=== PATIENT | female | born 1980 | race Caucasian/White ===

== ENCOUNTER 2017-06-23 02:48 | Emergency (ER) | payer MEDICAID ==
[~2017-06-23] VITALS: Ht 162.6 cm; Wt 63.0 kg
--- NOTE | 2017-06-23 03:00 | NUR ---
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 FIELD BP 72/27. PT ALSO STATES ABD PAIN SINCE THIS AM +N/V TAKING OTC [place] MEDS. PT AOX3 RR EVEN AND UNLABORED. NO SOB NOTED. NAD NOTED. NO NVD AT THIS TIME. PT GOWNED AND PLACED ON MONITOR WAITING FOR MD CONTRERAS.
--- NOTE | 2017-06-23 03:08 | NUR ---
DR. GAUTAM AT BEDSIDE FOR EVAL.
[2017-06-23] MEDS ORDERED: ONDANSETRON HCL/PF 4 MG/2 ML VIAL IVP ONE (03:30)
[2017-06-23] MEDS ORDERED: IV NS 0.9% 1,000 ML BAG IV ONE (03:30)
[2017-06-23] MEDS ORDERED: DICYCLOMINE HCL 10 MG CAPSULE PO ONE (03:30)
[2017-06-23 03:42] LABS: BASOPHILS # (AUTO) 0.1 /CMM (0.0-0.2); BASOPHILS % (AUTO) 0.9 % (0.0-2.0); EOSINOPHILS # (AUTO) 0.1 /CMM (0.0-0.7); EOSINOPHILS % (AUTO) 0.8 % (0.0-6.0); HEMATOCRIT 40 % (33-45); LYMPHOCYTES # (AUTO) 1.8 /CMM (0.8-4.8); LYMPHOCYTES % (AUTO) 24.9 % (20.0-44.0); MEAN CORPUSCULAR HEMOGLOBIN 32 PG (26.0-33.0); MEAN CORPUSCULAR HGB CONC 35 g/dl (31.0-36.0); MEAN CORPUSCULAR VOLUME 91 fL (82-100); MONOCYTES # (AUTO) 0.9 /CMM (0.1-1.30); MONOCYTES % (AUTO) 11.7 % (2.0-12.0); NEUTROPHILS # (AUTO) 4.5 /CMM (1.8-8.9); NEUTROPHILS % (AUTO) 61.7 % (43.0-81.0); PLATELET COUNT (AUTO) 199 /CMM (150-450); RDW COEFFICIENT OF VARIATION 13.4 (11.5-15.0); RED BLOOD CELL COUNT(AUTO) 4.43 MIL/uL (4.0-5.2); WHITE BLOOD COUNT (AUTO) 7.4 K/uL (4.3-11.0)
--- NOTE | 2017-06-23 03:46 | NUR ---
MICHELLE AT BEDSIDE
[2017-06-23 03:59] LABS: CALCIUM, SERUM 9.1 mg/dL (8.5-10.1); CARBON DIOXIDE 26 mmol/L (21-32); CHLORIDE 101 mmol/L (98-107); CREATININE 0.8 mg/dL (0.6-1.3); GLUCOSE 96 mg/dL (74-106); POTASSIUM 3.5 mmol/L (3.5-5.1); SODIUM SERUM 136 mmol/L (136-145); UREA NITROGEN, BLOOD 9 mg/dL (7-18)
[2017-06-23 04:04] LABS: ALANINE AMINOTRANSFERASE 25 U/L (12-78); ALBUMIN 3.8 g/dL (3.4-5.0); ALKALINE PHOSPHATASE 65 U/L (46-116); ASPARTATE AMINOTRANSFERASE 18 U/L (15-37); BILIRUBIN,DIRECT 0.1 mg/dL (0.0-0.2); BILIRUBIN,TOTAL 0.5 mg/dL (0.2-1.0); LIPASE 94 U/L (73-393); TOTAL PROTEIN, SERUM 7.6 g/dL (6.4-8.2)
[2017-06-23 04:09] LABS: TROPONIN I < 0.017 ng/mL (0.00-0.056)
--- NOTE | 2017-06-23 04:45 | NUR ---
PT AMBULATORY TO RESTROOM WITH STEADY GAIT.
--- NOTE | 2017-06-23 05:09 | NUR ---
DUE TO INCORRECT NAME OF PATIENT, I MANUALLY REGISTERED THE PATIENT INTO THE MACHINE. PREVIOUS NAME WAS BRANDON HIGGINS. AFTER COMPLETING THE EXAM, I COULD NOT SEND THE EXAM TO [facility]. CALLED [facility] @4:55 AND INFORMED NURSE HEATHER THAT THERE IS A DELAY IN SENDING MY REPORT. POOJA SAID [facility]OM[facility] WILL COME IN TO LOOK AT THE ISSUE.
--- NOTE | 2017-06-23 05:13 | NUR ---
PT TO CT VIA STRETCHER.
--- NOTE | 2017-06-23 05:26 | NUR ---
PT BACK FROM CT, VSS.
--- NOTE | 2017-06-23 06:10 | NUR ---
DR. GAUTAM SPOKE TO PT REGARDING RESULTS.
--- NOTE | 2017-06-23 06:29 | NUR ---
IV removed. Catheter intact and site benign. Pressure and 4x4 applied to site. No bleeding noted. Patient discharged to home in stable condition. Written and verbal after care instructions given. Patient verbalizes understanding of instruction. ambulatory with a steady gait. instructed pt not to drive. pt verbalize understanding.
[2017-06-23 06:32] VITALS: BP 102/78
== END 2017-06-23 06:33 | disposition home or self-care (01) ==
LOC: ER 02:49
DX: R55 Syncope and collapse (principal); R10.11 Right upper quadrant pain; Z88.0 Allergy status to penicillin; Z88.1 Allergy status to other antibiotic agents; Z90.89 Acquired absence of other organs; Z60.2 Problems related to living alone
CPT/HCPCS: 36415; 74176; 76705; 80048; 80076; 83690; 84484; 84703; 85025; 85730; 93005; 96360; 99285; A4606; J7030; Z7610